=== PATIENT | female | born 1960 | race African-American/Black ===

== ENCOUNTER 2019-05-24 12:50 | Outpatient (CLI) | payer BC ==
--- NOTE | 2019-05-24 14:14 | MRI ---
MRI of right hip performed without contrast HISTORY: Right hip and leg pain. COMPARISON: None. FINDINGS: The SI joints are symmetric. There is no signs of any pelvic insufficiency-type fracture. T he visualized intrapelvic contents appear unremarkable. Although no small [id number] images were performed there are findings that are suspicious for left hip labral injury. Small [id number] images of the right hip show minimal free edge irregularity to the labrum suggest ing some mild degeneration. The gluteus minimus and medius tendon insertions appear normal. Some mild tendinosis of both hamstring tendon origins are incidentally seen. IMPRESSION: 1. Findings are suspicious for a left hip labral tear. This examination was dedicated to evaluation o f the right hip and therefore assessment is limited. 2. Mild tendinopathy of the hamstring tendon origins.
== END 2019-05-24 12:51 | disposition home or self-care (01) ==
LOC: SCSMRI 12:50
PROVIDERS: ATTEND Family Medicine
DX: M25.551 Pain in right hip (principal); G89.29 Other chronic pain; M67.853 Other specified disorders of tendon, right hip

== ENCOUNTER 2019-05-28 08:34 | Outpatient (CLI) | payer BC ==
--- NOTE | 2019-05-28 10:00 | MRI ---
MRI Upper Ext Jt Rt WO Con History: M 27.511 pain in right shoulder Comparison: None. Findings: Moderate interstitial tearing of the extra articular biceps tendon at the intertubercular g roove with high-grade intra-articular tendinosis and interstitial tearing. Labrum: Maceration of the superior labrum anterior-posterior to the biceps labral expansion. There is also an anterior-inferior labral tear. Rotator cuff: 50% undersurface partial tearing of the entire supraspinatus tendon with interstitial d elamination. Torn fibers from the footprint with a 2 to 3 mm gap. Moderate tendinosis. High-grade tendinosis and undersurface partial tearing subscapularis. No full-thickness perforations appreciated. Bones: Severe degenerative disease acromioclavicular joint. Type I acromion. Normal glenoid version. Soft tissues: Moderate subacromial/subdeltoid bursa effusion. Muscles: No significant muscle atrophy. Impression: 1. Extra articular biceps tendinosis with extensive intra-articular interstitial tearing. 2. High-grade tearing of the superior labrum anterior-posterior to the biceps labral expansion along with an anterior inferior labral tear. 3. 50% undersurface partial tear entire supraspinatus tendon from the footprint with a 2 to 3 mm gap. Torn fibers are highly tendinotic with associated interstitial delamination. 4. High-grade degenerative disease acromioclavicular joint. 5. Moderate subacromial/subdeltoid bursa effusion.
== END 2019-05-28 08:35 | disposition home or self-care (01) ==
LOC: TBSIIMAG 08:34
PROVIDERS: ATTEND Family Medicine
DX: M25.511 Pain in right shoulder (principal); G89.29 Other chronic pain; M75.21 Bicipital tendinitis, right shoulder; S46.911A Strain of unspecified muscle, fascia and tendon at shoulder and upper arm level, right arm, initial encounter; M19.011 Primary osteoarthritis, right shoulder

== ENCOUNTER 2019-09-06 07:47 | Outpatient (CLI) | payer BC ==
--- NOTE | 2019-09-06 09:07 | MRI ---
MRI Cervical spine without contrast: HISTORY: Cervical disc degenerative disease at C6-7 level. Patient complains of right-sided arm and finger num bness and tingling for a few months. COMPARISON: None FINDINGS: The craniocervical junction is unremarkable. No significant cord signal abnormality. Paravertebral soft tissues have a normal appearance and normal signal intensity. There is a partially early empty sella turcica. C1-2:No significant stenosis. C2-3: There is no disc bulge or disc herniation. The central spinal canal and neural foramina are pat ent. C3-4: There is no disc bulge or disc herniation. The central spinal canal and neural foramina are pat ent. C4-5: There is no disc bulge or disc herniation. The central spinal canal and neural foramina are pat ent. C5-6: There is loss of intervertebral disc height. Broad-based disc osteophyte complex is present at this level. There is effacement of the ventral aspect of the thecal sac with mild to moderate left and mild right-sided neural foraminal narrowing. C6-7: There is loss of intervertebral disc height. There is broad-based disc osteophyte complex and f acet degenerative changes noted. There is narrowing of the ventral subarachnoid space with mild flattening the anterior aspect of the spinal cord, but normal signal intensity is present in the spin al cord. Left neural foramen is patent, but there is mild right-sided neural foraminal narrowing. C7-T1: There is no disc bulge or disc herniation. The central spinal canal and neural foramina are pa tent. IMPRESSION: Disc degenerative changes at the C5-6 and C6-7 levels
== END 2019-09-06 07:48 | disposition home or self-care (01) ==
LOC: TBSIIMAG 07:47
PROVIDERS: ATTEND Psychiatry & Neurology Neurology
DX: M50.223 Other cervical disc displacement at C6-C7 level (principal); M47.812 Spondylosis without myelopathy or radiculopathy, cervical region
CPT/HCPCS: 72141

== ENCOUNTER 2019-09-23 15:47 | Outpatient (CLI) | payer BC ==
--- NOTE | 2019-09-23 16:42 | MRI ---
MRI lumbar spine noncontrast HISTORY: Low back pain with bilateral radiculopathy. FINDINGS: Vertebral body heights and alignment are maintained. Bone marrow signal within normal limit s. There is a transitional vertebra at the lumbosacral junction. Desiccation of the disc at the lowest m ovable disc level. Central canal and neural foramina are patent. No focal disc herniation. IMPRESSION: No significant abnormalities. No focal disc herniation or nerve root compression. 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
== END 2019-09-23 15:48 | disposition home or self-care (01) ==
LOC: TBSIIMAG 15:47
PROVIDERS: ATTEND Orthopaedic Surgery
DX: M48.061 Spinal stenosis, lumbar region without neurogenic claudication (principal); Q76.49 Other congenital malformations of spine, not associated with scoliosis
CPT/HCPCS: 72148

== ENCOUNTER 2021-01-18 15:43 | Outpatient (CLI) | payer BC | END 2021-01-18 15:44 | disposition home or self-care (01) | LOC: BICULT 15:43 | PROVIDERS: ATTEND Family Medicine | DX: I89.0 Lymphedema, not elsewhere classified (principal); R23.4 Changes in skin texture; R60.0 Localized edema | CPT/HCPCS: 76881 ==

== ENCOUNTER 2023-09-04 16:08 | Outpatient (CLI) | payer BC | END 2023-09-04 16:09 | disposition home or self-care (01) | LOC: SCSRAD 16:08 | PROVIDERS: ATTEND Nurse Practitioner Family | DX: R07.81 Pleurodynia (principal) ==